=== PATIENT | female | born 1985 | race Caucasian/White ===

== ENCOUNTER → 2017-01-09 | Outpatient (CLI) | payer BC ==
--- NOTE | 2017-01-09 16:05 | Diagnostic Imaging Report ---
INDICATION: survey. TECHNIQUE: Multiple real-time grayscale images were obtained over the gravid uterus. COMPARISON: No prior studies are available for comparison. FINDINGS: heart rate is 138 beats per minutes. There is posterior placenta with no placenta previa. The cervix is long and closed measuring 4.5 cm in length. There is adequate amniotic fluid seen. survey evaluation demonstrates unremarkable appearance of the stomach, the spine, bladder, suggestion of two umbilical arteries, no ventriculomegaly, unremarkable appearance of the four-chamber view. No hydronephrosis or cystic renal mass is demonstrated. The cord insertion is not well seen. This is related to position and surrounding structures. Biometrical measurements are as follows: Biparietal 4.81 cm, age 20 weeks 4 days. Head circumference 17.59 cm, age 20 weeks 1 days. Abdominal circumference 15.22 cm, age 20 weeks 4 days. Femur length 3.12 cm, age 19 weeks 5 days. Sonographic estimate age: 20 weeks 2 days. This compares to 19 weeks and 1 day gestational age based on MANUEL of 06/04/2017, signed by Dr. Bey. Sonographic estimated date of delivery: 05/27/2017. Estimated Weight: 333 gm (+/- 49 gm). LMP percentile: 93%. heart rate: 138 beats per minute. Cervical length: 4.5 cm. number: 1 of 1. IMPRESSION: Short-term followup is recommended to reevaluate the cord insertion. Dictated by: Dictated on workstation # [id number]
== END ==
LOC: RAD 14:33
PROVIDERS: ATTEND Obstetrics & Gynecology
DX: Z36 Encounter for antenatal screening of mother (principal); Z3A.27 27 weeks gestation of pregnancy
CPT/HCPCS: 76805; 76817

== ENCOUNTER → 2017-02-06 | Outpatient (CLI) | payer BC ==
--- NOTE | 2017-02-06 16:26 | Diagnostic Imaging Report ---
INDICATION: Followup cord insertion. TECHNIQUE: Multiple real-time grayscale images were obtained over the gravid uterus. COMPARISON: 01/09/2017 FINDINGS: heart rate is 143 beats per minute. The placenta is posterior. No placenta previa. There is adequate amniotic fluid. Unfortunately, the cord insertion is not well seen at this time as well due to position. IMPRESSION: The cord insertion is still not well seen. Dictated by: Dictated on workstation # [id number]
== END ==
LOC: RAD 12:25
PROVIDERS: ATTEND Obstetrics & Gynecology
DX: Z36 Encounter for antenatal screening of mother (principal); Z3A.00 Weeks of gestation of pregnancy not specified
CPT/HCPCS: 76816

== ENCOUNTER → 2017-02-19 | Outpatient (CLI) | payer BC ==
--- NOTE | 2017-02-19 11:50 | Diagnostic Imaging Report ---
INDICATION: Followup incomplete visualization of the cord insertion. TECHNIQUE: Multiple real-time grayscale images were obtained over the gravid uterus. COMPARISON: 02/06/2017. FINDINGS: Limited transabdominal sonographic evaluation of the gravid uterus was performed. Single live intrauterine is again demonstrated. Gestational age by the first ultrasound is 25 weeks 0 days. Placenta is located within the posterior fundus with no placenta previa. Normal amniotic fluid index. presentation is breech. heart rate measures 143 beats per minute. Good visualization of the umbilical cord insertion which appears within normal limits. IMPRESSION: Umbilical cord insertion appears within normal limits. Dictated by: Dictated on workstation # [id number]
== END ==
LOC: RAD 09:39
PROVIDERS: ATTEND Obstetrics & Gynecology
DX: Z36 Encounter for antenatal screening of mother (principal); Z3A.25 25 weeks gestation of pregnancy
CPT/HCPCS: 76816

== ENCOUNTER 2017-06-05 20:05 | Inpatient (IN) | payer BC ==
[~2017-06-05] VITALS: Ht 172.7 cm; Wt 90.3 kg
[2017-06-05 20:25] VITALS: BP 127/78
[2017-06-05] MEDS ORDERED: LACTATED RINGERS 1,000 ML IV ONE (20:34)
[2017-06-05] MEDS ORDERED: D5 LR IV SOLUTION 1,000 ML IV ONE (20:35)
[2017-06-05] MEDS: D5 LR IV SOLUTION 1,000 ML IV SCH (20:50)
[2017-06-05] MEDS ORDERED: MISOPROSTOL 100 MCG (CYTOTEC) TAB PO ONE (21:15)
[2017-06-05] MEDS ORDERED: LACTATED RINGERS 1,000 ML IV SCH (21:18)
[2017-06-05 21:30] LABS: BASOPHILS % (AUTO) 0 % (0-10); EOSINOPHILS # (AUTO) 0.1 10^3/uL (0.0-0.3); EOSINOPHILS % (AUTO) 1 % (0-10); LYMPHOCYTES # (AUTO) 2.4 X 10^3 (1.0-4.0); LYMPHOCYTES % (AUTO) 19 % (12-44); MEAN CORPUSCULAR HEMOGLOBIN 29 PG (25-34); MEAN CORPUSCULAR HGB CONC 33 G/DL (32-36); MEAN CORPUSCULAR VOLUME 88 FL (80-99); MEAN PLATELET VOLUME 10.9 FL (7.4-10.4); MONOCYTES % (AUTO) 8 % (0-12); NEUTROPHILS # (AUTO) 9.5 X 10^3 (1.8-7.8); NEUTROPHILS % (AUTO) 73 % (42-75); PLATELET COUNT 210 10^3/uL (130-400); RED BLOOD COUNT 3.96 10^6/uL (4.35-5.85); RED CELL DISTRIBUTION WIDTH 13.1 % (10.0-14.5)
[2017-06-05] MEDS ORDERED: MINERAL OIL CONCENTRATE 99.9% 15 ML UDC TOP PRN (21:30)
[2017-06-05] MEDS ORDERED: ZOLPIDEM 5 MG (AMBIEN) TAB PO ONE (21:30)
[2017-06-05 22:20] LABS: BILIRUBIN,URINE NEGATIVE (NEGATIVE); KETONES,URINE 2+ (NEGATIVE); LEUKOCYTE ESTERASE ,URINE NEGATIVE (NEGATIVE); NITRITE,URINE NEGATIVE (NEGATIVE); PH,URINE 6.5 (5-9); PROTEIN,URINE NEGATIVE (NEGATIVE); UROBILINOGEN,URINE NORMAL (NORMAL)
[2017-06-06] VITALS (66 sets, daily range): BP systolic 90–179; BP diastolic 53–99
[2017-06-06] MEDS: MISOPROSTOL 100 MCG (CYTOTEC) TAB PO SCH ×2 (01:37→06:31)
[2017-06-06] MEDS ORDERED: LEVO50TA PO (01:39)
[2017-06-06] MEDS: D5 LR IV SOLUTION 1,000 ML IV SCH ×3 (04:49→17:37)
[2017-06-06] MEDS: CATHETER FLUSH 10 ML SYR IV SCH ×3 (04:51→14:00)
[2017-06-06] MEDS ORDERED: INFLUENZA TRIvalent 2017-2018 0.5 ML/45 MCG SYR IM ONE (08:00)
[2017-06-06] MEDS ORDERED: OXYTOCIN/NORMAL SALINE 500 ML IV SCH ×2 (12:03→23:24)
[2017-06-06] MEDS ORDERED: SUFENTA 0.6MCG/ML BUPIVA 0.125 100 ML ONE (13:13)
[2017-06-06] MEDS ORDERED: fentaNYL INJECTION 100 MCG/2 ML AMP ONE (13:51)
[2017-06-06] MEDS: EPIDURAL (SUFENTA 0.6MCG/ML BUPIVA 0.125%) 100 ML BAG EPI PRN ×2 (14:00→22:03)
[2017-06-06] MEDS ORDERED: LACTATED RINGERS 1,000 ML IV ONE (14:58)
[2017-06-06] MEDS ORDERED: METOCLOPRAMIDE INJ 10 MG/2 ML (REGLAN) IV PRN (15:00)
[2017-06-06] MEDS ORDERED: NALOXONE 0.4 MG/ML 1 ML (NARCAN) VIAL IV PRN ×2 (15:00)
[2017-06-06] MEDS ORDERED: diphenhydrAMINE 50 MG/ML INJ (BENADRYL) IV PRN (15:00)
[2017-06-06] MEDS ORDERED: ONDANSETRON 4 MG/2 ML (SDV) Z0FRAN IV PRN (15:00)
[2017-06-06] MEDS ORDERED: LIDOCAINE/EPI 2% 1:200,00 (XYLOCAINE) 10 ML VIAL ONE (20:47)
[2017-06-06] MEDS ORDERED: MEASLES,MUMPS,RUBELLA 1 EA INJ SQ ONE (23:30)
[2017-06-06] MEDS ORDERED: TETANUS,DIPTH,PERTUSS P/F (BOOSTRIX) 0.5 ML VIAL IM ONE (23:30)
[2017-06-06] MEDS ORDERED: HYDROcodone/APAP 5 MG/325 MG (LORTAB) TAB PO PRN (23:30)
--- NOTE | 2017-06-06 23:32 | OB Labor & Delivery Record ---
Vag Delivery Note Vag Delivery Note Date of Delivery: 06/06/17 Preoperative Diagnosis: Marci Saldana is a 31 /Para 1 /0 , Gestational Age 40 2/7 for induction due to post dates Postoperative Diagnosis: Same Surgeon: TRISTEN DOMINGO Anesthesia: epidural Delivery Type: vaginal Findings: Viable male infant, apgar9/9, weight [ pending Lacerations: 2nd degree Intact placenta with 3 vessel cord. No nuchal cord, body cord or shoulder dystocia Estimated Blood Loss: 150 ml Complications: None Condition: Stable Description of Procedure: The patient is a 31 /Para 1 /0 ,Gestational Age 40 2/7 for induction due to post dates. She was admitted and informed consent was obtained. Her labor course was remarkable for oral misoprostol x 3 doses then AROM and no augmentation until 9.5 + cm. She progressed to complete dilatation and began to push. She was then set up for delivery. The infant's head was delivered atraumatically in the CHERYL position. The shoulders and remainder of the 's body were then delivered without difficulty. Upon delivery, the head was held below the level of the perineum and the mouth and nares were bulb suctioned. The cord was doubly clamped and cut and the was handed off to the pediatric staff. An intact placenta with 3-vessel cord delivered via Matt and there was found to be minimal bleeding.~ Vigorous fundal massage was performed and the fundus was found to be firm. IV oxytocin was given. Examination of the vagina and perineum revealed a 2nd degree laceration repaired in the usual fashion with 3-0 vicryl suture. Following the repair, sponge, instrument and needle counts were correct. Mom and baby were both in stable condition in the labor suite. Vitals - Labs Vital Signs - I&O Vital Signs Date Time Temp Pulse Resp B/P (MAP) Pulse Ox O2 Delivery O2 Flow Rate FiO2 06/06/17 21:30 85 18 123/78 98 Room Air 06/06/17 21:15 80 18 124/73 98 Room Air 06/06/17 21:00 81 18 123/79 99 Room Air 06/06/17 20:45 81 18 122/77 98 Room Air 06/06/17 20:30 77 18 123/76 97 Room Air 06/06/17 20:25 86 18 122/72 97 Room Air 06/06/17 20:20 92 18 121/72 97 Room Air 06/06/17 20:15 77 18 125/73 97 Room Air 06/06/17 20:10 81 18 125/75 96 Room Air 06/06/17 20:05 85 18 119/75 98 Room Air 06/06/17 20:00 87 18 120/77 99 Room Air 06/06/17 19:55 78 18 121/71 99 Room Air 06/06/17 19:50 79 18 116/71 98 Room Air 06/06/17 19:45 97.7 84 18 125/83 97 Room Air 06/06/17 19:40 85 18 125/77 Room Air 06/06/17 19:30 86 18 123/76 Room Air 06/06/17 19:15 82 18 119/66 Room Air 06/06/17 19:00 78 18 114/67 Room Air 06/06/17 18:45 96 121/70 Room Air 06/06/17 18:45 Room Air 06/06/17 18:30 74 117/69 Room Air 06/06/17 18:15 83 119/75 Room Air 06/06/17 18:00 88 118/71 Room Air 06/06/17 18:00 98.0 06/06/17 17:45 73 18 113/68 Room Air 06/06/17 17:30 120/70 Room Air 06/06/17 17:15 86 116/74 Room Air 06/06/17 17:00 88 123/74 Room Air 06/06/17 16:45 84 120/73 Room Air 06/06/17 16:30 71 18 115/71 Room Air 06/06/17 16:15 73 114/70 Room Air 06/06/17 16:00 79 115/70 Room Air 06/06/17 15:45 114/78 Room Air 06/06/17 15:30 80 114/78 Non Rebreather 15.00 06/06/17 15:15 79 111/74 Room Air 06/06/17 15:00 87 90/53 99 Room Air 06/06/17 14:45 74 110/70 99 Room Air 06/06/17 14:30 96.9 Room Air 06/06/17 14:27 82 18 114/68 99 06/06/17 14:25 73 18 114/66 100 06/06/17 14:23 85 18 112/68 100 10/18/17 14:19 76 18 111/67 100 06/06/17 14:16 81 18 120/67 100 06/06/17 14:15 78 18 119/70 Room Air 06/06/17 14:13 78 18 119/70 100 06/06/17 14:10 81 18 126/74 98 06/06/17 14:07 81 18 126/74 98 06/06/17 14:04 81 18 125/75 100 06/06/17 14:01 82 18 123/75 06/06/17 14:00 88 18 121/74 Room Air 06/06/17 13:55 90 125/73 99 Room Air 06/06/17 13:52 88 119/74 99 Room Air 06/06/17 13:50 85 127/79 99 Room Air 06/06/17 13:45 90 121/78 100 Room Air 06/06/17 13:30 06/06/17 13:20 79 18 122/79 Room Air 06/06/17 13:15 06/06/17 13:05 81 18 122/79 Room Air 06/06/17 13:00 06/06/17 12:50 80 18 128/81 Room Air 06/06/17 12:45 06/06/17 12:35 97.6 81 18 129/78 Room Air 06/06/17 12:30 06/06/17 12:20 81 18 127/84 Room Air 06/06/17 12:15 06/06/17 12:00 06/06/17 11:00 06/06/17 10:00 06/06/17 09:00 06/06/17 08:15 97.6 90 18 135/81 06/06/17 08:00 06/06/17 07:00 97.2 77 125/79 06/06/17 02:00 97.2 82 18 119/79 I & O 06/07/17 07:00 Intake Total 3000 ml Balance 3000 ml Labs Microbiology 06/05/17 Urine Culture - Preliminary, Resulted TRISTEN DOMINGO DO Jun 06, 2017 23:32
[2017-06-07] VITALS (8 sets, daily range): BP systolic 108–119; BP diastolic 66–80
[2017-06-07] MEDS: IBUPROFEN 600 MG (MOTRIN) TAB PO SCH ×4 (00:36→18:46)
[2017-06-07] MEDS: WITCH HAZEL(TUCKS) 40 EA JAR TOP PRN (01:10)
[2017-06-07] MEDS: BENZOCAINE/MENTHOL (DERMOPLAST) 56 ML CAN TP PRN (01:10)
[2017-06-07] MEDS: DIBUCAINE (NUPERCAINAL) 1% OINT 30 GM TOP PRN (01:10)
[2017-06-07] MEDS: CATHETER FLUSH 10 ML SYR IV SCH ×2 (02:11→06:28)
[2017-06-07] MEDS ORDERED: CATHETER FLUSH 10 ML SYR IV SCH (06:00)
[2017-06-07 06:09] LABS: BASOPHILS % (AUTO) 0 % (0-10); EOSINOPHILS # (AUTO) 0.1 10^3/uL (0.0-0.3); EOSINOPHILS % (AUTO) 0 % (0-10); LYMPHOCYTES # (AUTO) 1.8 X 10^3 (1.0-4.0); LYMPHOCYTES % (AUTO) 9 % (12-44); MEAN CORPUSCULAR HEMOGLOBIN 29 PG (25-34); MEAN CORPUSCULAR HGB CONC 33 G/DL (32-36); MEAN CORPUSCULAR VOLUME 88 FL (80-99); MONOCYTES # (AUTO) 1.5 X 10^3 (0.0-1.0); MONOCYTES % (AUTO) 7 % (0-12); NEUTROPHILS # (AUTO) 16.6 X 10^3 (1.8-7.8); NEUTROPHILS % (AUTO) 83 % (42-75); PLATELET COUNT 190 10^3/uL (130-400); RED BLOOD COUNT 3.77 10^6/uL (4.35-5.85); RED CELL DISTRIBUTION WIDTH 13.3 % (10.0-14.5); WHITE BLOOD COUNT 19.9 10^3/uL (4.3-11.0)
[2017-06-07] MEDS: D5 LR IV SOLUTION 1,000 ML IV SCH (06:28)
[2017-06-07] MEDS ORDERED: PRENATAL VITAMIN 1 EA TAB PO SCH (07:00)
[2017-06-07] MEDS: FERROUS SULF 325 MG (IRON) TAB PO SCH (09:21)
[2017-06-07] MEDS: DOCUSATE SODIUM 100 MG (COLACE) CAP PO SCH ×2 (09:21→20:35)
--- NOTE | 2017-06-07 17:26 | Postpartum Progress Note ---
Note Note See at 0845 Day # 1 Subjective: Patient is without complaints. Ambulating, voiding. Tolerating a regular diet without nausea or vomiting. Normal lochia. Pain is well controlled with oral pain medications. breast feeding Objective: Vital Sign - Last 12Hours 06/07/17 06/07/17 06/07/17 06/07/17 09:30 13:07 16:00 16:40 Temp 97.6 98.4 99.5 99.2 Pulse 87 81 83 Resp 18 18 20 B/P (MAP) 113/72 110/75 117/72 Pulse Ox 100 98 100 O2 Delivery Room Air Room Air Room Air Laboratory Tests Test 06/07/17 06:00 Range/Units White Blood Count 19.9 H 4.3-11.0 10^3/uL Red Blood Count 3.77 L 4.35-5.85 10^6/uL Hemoglobin 11.1 L 11.5-16.0 G/DL Hematocrit 33 L 35-52 % Mean Corpuscular Volume 88 80-99 FL Mean Corpuscular Hemoglobin 29 25-34 PG Mean Corpuscular Hemoglobin Concent 33 32-36 G/DL Red Cell Distribution Width 13.3 10.0-14.5 % Platelet Count 190 130-400 10^3/uL Mean Platelet Volume 11.0 H 7.4-10.4 FL Neutrophils (%) (Auto) 83 H 42-75 % Lymphocytes (%) (Auto) 9 L 12-44 % Monocytes (%) (Auto) 7 0-12 % Eosinophils (%) (Auto) 0 0-10 % Basophils (%) (Auto) 0 0-10 % Neutrophils # (Auto) 16.6 H 1.8-7.8 X 10^3 Lymphocytes # (Auto) 1.8 1.0-4.0 X 10^3 Monocytes # (Auto) 1.5 H 0.0-1.0 X 10^3 Eosinophils # (Auto) 0.1 0.0-0.3 10^3/uL Basophils # (Auto) 0.0 0.0-0.1 10^3/uL Physical Exam: General - Alert and oriented, no apparent distress Abdomen - Soft, appropriately tender to palpation, non-distended, fundus firm at umbilicus Extremities - no edema, negative Ritchie's bilaterally Assessment: 1. post- day # 1, status post vaginal delivery. Recovering well, hemodynamically stable Plan: Routine care. Encourage breast feeding. Encourage ambulation. Ferrous sulfate supplementation. Plan for discharge tomorrow Vitals - Labs Vital Signs - I&O Vital Signs Date Time Temp Pulse Resp B/P (MAP) Pulse Ox O2 Delivery O2 Flow Rate FiO2 06/07/17 16:40 99.2 06/07/17 16:00 99.5 83 20 117/72 100 Room Air 06/07/17 13:07 98.4 81 18 110/75 98 Room Air 06/07/17 09:30 97.6 87 18 113/72 100 Room Air 06/07/17 04:00 97.5 80 18 108/66 98 Room Air 06/07/17 00:48 98.8 84 18 115/66 Room Air 06/07/17 00:33 88 18 112/70 Room Air 06/07/17 00:03 83 18 118/71 Room Air 06/06/17 23:48 99.0 80 18 113/65 Room Air 06/06/17 23:34 93 18 128/66 Room Air 06/06/17 23:00 126 18 179/82 Room Air 06/06/17 22:55 18 Room Air 06/06/17 22:50 18 Room Air 06/06/17 22:45 87 18 121/69 Room Air 06/06/17 22:30 93 18 126/63 Room Air 06/06/17 22:15 87 18 121/75 Room Air 06/06/17 22:00 105 18 143/99 99 Room Air 06/06/17 21:45 80 18 98 Room Air 06/06/17 21:30 85 18 123/78 98 Room Air 06/06/17 21:15 80 18 124/73 98 Room Air 06/06/17 21:00 81 18 123/79 99 Room Air 06/06/17 20:45 81 18 122/77 98 Room Air 06/06/17 20:30 77 18 123/76 97 Room Air 06/06/17 20:25 86 18 122/72 97 Room Air 06/06/17 20:20 92 18 121/72 97 Room Air 06/06/17 20:15 77 18 125/73 97 Room Air 06/06/17 20:10 81 18 125/75 96 Room Air 06/06/17 20:05 85 18 119/75 98 Room Air 06/06/17 20:00 87 18 120/77 99 Room Air 06/06/17 19:55 78 18 121/71 99 Room Air 06/06/17 19:50 79 18 116/71 98 Room Air 06/06/17 19:45 97.7 84 18 125/83 97 Room Air 06/06/17 19:40 85 18 125/77 Room Air 06/06/17 19:30 86 18 123/76 Room Air 06/06/17 19:15 82 18 119/66 Room Air 06/06/17 19:00 78 18 114/67 Room Air 06/06/17 18:45 96 121/70 Room Air 06/06/17 18:45 Room Air 06/06/17 18:30 74 117/69 Room Air 06/06/17 18:15 83 119/75 Room Air 06/06/17 18:00 88 118/71 Room Air 06/06/17 18:00 98.0 06/06/17 17:45 73 18 113/68 Room Air 06/06/17 17:30 120/70 Room Air Labs Laboratory Tests 06/07/17 06:00: White Blood Count 19.9H, Red Blood Count 3.77L, Hemoglobin 11.1L, Hematocrit 33L , Mean Corpuscular Volume 88, Mean Corpuscular Hemoglobin 29, Mean Corpuscular Hemoglobin Concent 33, Red Cell Distribution Width 13.3, Platelet Count 190, Mean Platelet Volume 11.0H, Neutrophils (%) (Auto) 83H, Lymphocytes (%) (Auto) 9L, Monocytes (%) (Auto) 7, Eosinophils (%) (Auto) 0, Basophils (%) (Auto) 0, Neutrophils # (Auto) 16.6H, Lymphocytes # (Auto) 1.8, Monocytes # (Auto) 1.5H, Eosinophils # (Auto) 0.1, Basophils # (Auto) 0.0 Microbiology 06/05/17 Urine Culture - Final, Complete TRISTEN DOMINGO DO Jun 07, 2017 5:26 pm
[2017-06-07] MEDS ORDERED: HYDR-3812 PO (17:27)
[2017-06-07] MEDS ORDERED: IBUP-1773 PO (17:27)
--- NOTE | 2017-06-07 17:29 | Discharge Inst-Women's Service ---
Discharge Inst-Women's Serv Depart Medication/Instructions New, Converted or Re-Newed RX: RX on Chart Final Diagnosis post dates vaginal delivery hypothyroidism Consults/Follow Up Additional Follow Up: Yes (6 weeks) Activity Activity: Activity as Tolerated Driving Instructions: You May Drive NO SMOKING: NO SMOKING Nothing Inside Vagina: No Douching, No [place], No Tampons Diet Discharge Diet: No Restrictions Symptoms to Report to : Swelling Increased, Bleeding Excessive, Pain Increased, Fever Over 101 Degrees F, Vaginal Bleeding Increase, Cramps in Feet or Legs, Vaginal Discharge Foul For Any Problems or Questions: Contact Your Physician Skin/Wound Care Stitches/Radha/Dermabond: Dermabond Bathing Instructions: TRISTEN Chavez DO Jun 07, 2017 5:29 pm
[2017-06-08] MEDS: IBUPROFEN 600 MG (MOTRIN) TAB PO SCH ×3 (00:16→12:16)
[2017-06-08 00:19] VITALS: BP 121/80
[2017-06-08 06:10] VITALS: BP 123/81
--- NOTE | 2017-06-08 09:09 | Anesthesia-Regional Post-Op ---
Regional Patient Condition Mental Status: Alert, Oriented x3 Circulation: Same as Pre-Op Headache: Absent Sensation: Full Recovery Motor Block: Absent Post Op Complications Complications None Follow Up Care/Instructions Patient Instructions None needed. Anesthesia/Patient Condition Patient is doing well, no complaints, stable vital signs, no apparent adverse anesthesia problems. No complications reported per nursing. GIBRAN RG CRNA Jun 08, 2017 09:09
[2017-06-08 09:30] VITALS: BP 124/79
[2017-06-08] MEDS: DOCUSATE SODIUM 100 MG (COLACE) CAP PO SCH (09:46)
[2017-06-08] MEDS: FERROUS SULF 325 MG (IRON) TAB PO SCH (09:46)
[2017-06-08] MEDS: BENZOCAINE/MENTHOL (DERMOPLAST) 56 ML CAN TP PRN (10:02)
[2017-06-08] MEDS: WITCH HAZEL(TUCKS) 40 EA JAR TOP PRN (10:03)
[2017-06-08] MEDS: DIBUCAINE (NUPERCAINAL) 1% OINT 30 GM TOP PRN (10:03)
--- NOTE | 2017-06-08 10:18 | Progress Note-Standard ---
Standard Progress Note Progress Notes/Assess & Plan Date Seen by Provider: Jun 08, 2017 Time Seen by Provider: 10:00 Progress/Assessment & Plan Day # 2 Subjective: Patient is without complaints. Ambulating, voiding. Tolerating a regular diet without nausea or vomiting. Normal lochia. Pain is well controlled with oral pain medications. breast feeding Objective: Vital Sign - Last 24 Hours 06/07/17 06/07/17 06/07/17 06/07/17 13:07 16:00 16:40 21:00 Temp 98.4 99.5 99.2 99.2 Pulse 81 83 80 Resp 18 18 B/P (MAP) 110/75 117/72 119/80 Pulse Ox 98 100 99 O2 Delivery Room Air Room Air Room Air 06/08/17 06/08/17 06/08/17 00:19 06:10 09:30 Temp 99.1 97.9 98.9 Pulse 84 79 86 Resp 18 18 18 B/P (MAP) 121/80 123/81 124/79 Pulse Ox 98 99 99 O2 Delivery Room Air Room Air Room Air Physical Exam: General - Alert and oriented, no apparent distress Abdomen - Soft, appropriately tender to palpation, non-distended, fundus firm at umbilicus Extremities - no edema, negative Ritchie's bilaterally Assessment: Post- day # 2, status post vaginal delivery. Recovering well, hemodynamically stable Plan: Routine care. Encourage breast feeding. Encourage ambulation. Ferrous sulfate supplementation. Plan for discharge today RASHEED HAMMONDS DO Jun 08, 2017 10:18 am
[2017-06-08 12:30] VITALS: BP 116/78
[2017-06-08 14:20] VITALS: BP 116/78
== END 2017-06-08 14:20 | disposition home or self-care (01) | DRG 775 ==
LOC: LDRP 20:05
PROVIDERS: ADMIT Obstetrics & Gynecology; ATTEND Obstetrics & Gynecology
PROC: 3E0P7GC Introduction of Other Therapeutic Substance into Female Reproductive, Via Natural or Artificial Opening (ICD-10-PCS; 2017-06-05)
PROC: 0KQM0ZZ Repair Perineum Muscle, Open Approach (ICD-10-PCS; principal; 2017-06-06)
PROC: 10E0XZZ Delivery of Products of Conception, External Approach (ICD-10-PCS; 2017-06-06)
DX: O48.0 Post-term pregnancy (principal); O70.1 Second degree perineal laceration during delivery; Z3A.40 40 weeks gestation of pregnancy; Z37.0 Single live birth
CPT/HCPCS: 36415; 81000; 85025; 86850; 86900; 86901; 87088

== ENCOUNTER 2019-02-25 23:58 | Emergency (ER) | payer BC, OTHER ==
[~2019-02-25] VITALS: Ht 175.3 cm; Wt 63.5 kg
[~2019-02-25 23:58] MED LIST: ACHD5005 PO; IBUP-1773 PO; LEVO50TA PO
--- OUTSIDE RECORDS SUMMARY | 2019-02-26 00:04 | XMS REPORT ---
Author Author RASHEED ROJO Organization [facility] Address [address] [place] [address] Care Team Providers Care Extrusion Press Supervisor Name Role Phone RASHEED ROJO Unavailable PROBLEMS Type Condition ICD9-CM Code [id number] Code Onset Dates Condition Status SNOMED Code Problem Acquired hypothyroidism E03.9 Active [id number] ALLERGIES No Known Allergies ENCOUNTERS Encounter Location Date Diagnosis [facility] [address] [facility] [id number] [address] Jun, Acquired hypothyroidism E03.9 and Acute URI J06.9 IMMUNIZATIONS No Known Immunizations SOCIAL HISTORY Never Assessed REASON FOR VISIT Cough-SOFIYA [place], pt complaining of coughing up yellow phlegm and and chest is burning when cough, started last week PLAN OF CARE Activity Details Follow Up 6 Weeks Reason:lab for thyroid VITAL SIGNS Height 5 ft 8 in in 2018-07-10 Weight 140.9 lbs 2018-07-10 Temperature 98.0 degrees Fahrenheit 2018-07-10 Heart Rate 86 bpm 2018-07-10 Respiratory Rate 18 2018-07-10 Oximetry on room air:98 % 2018-07-10 BMI 21.42 kg/m2 2018-07-10 Blood pressure systolic 112 mmHg 2018-07-10 Blood pressure diastolic 78 mmHg 2018-07-10 MEDICATIONS Medication Instructions Dosage Frequency Start Date End Date Duration Status Levothyroxine Sodium 100 MCG Orally Once a day 1 tablet on an empty stomach in the morning 24h 30 day(s) Active RESULTS No Results PROCEDURES No Known procedures INSTRUCTIONS MEDICATIONS ADMINISTERED No Known Medications MEDICAL (GENERAL) HISTORY Type Description Date Medical History thyroid Surgical History No Surgical history information
--- OUTSIDE RECORDS SUMMARY | 2019-02-26 00:04 | XMS REPORT | Continuity of Care Document ---
Author Organization Unknown Address Unknown Allergies There is no data. Medications There is no data. Problems There is no data. Procedures There is no data. Results There is no data. Encounters ACCT No. Visit Date/Time Discharge Status Pt. Type Provider Facility Loc./Unit Complaint [id number] 12/26/2018 12:20:00 12/26/2018 23:59:59 CLS Outpatient [facility]
[2019-02-26 00:24] LABS: BILIRUBIN,URINE NEGATIVE (NEGATIVE); CLARITY,URINE CLEAR; COLOR,URINE YELLOW; GLUCOSE, URINE (UA) NEGATIVE (NEGATIVE); KETONES,URINE 1+ (NEGATIVE); LEUKOCYTE ESTERASE ,URINE 1+ (NEGATIVE); NITRITE,URINE NEGATIVE (NEGATIVE); PH,URINE 6 (5-9); PROTEIN,URINE 2+ (NEGATIVE); UROBILINOGEN,URINE 1 MG/DL (NORMAL)
[2019-02-26 00:38] LABS: BACTERIA,URINE MODERATE /HPF; WBC,URINE 0-2 /HPF
--- NOTE | 2019-02-26 01:39 | ED Abdominal Pain ---
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 STATES SHE GOT VERY NAUSEATED, LIGHTHEADED, AND WAS LYING ON BATHROOM FLOOR WRITHING IN PAIN. DENIES FEVER OR URINARY ISSUES. STATES BARELY HAS ANY PAIN NOW AND RATES 1/10. Sepsis Screen: No Definite Risk Source of Information: Patient, Family Exam Limitations: No Limitations History of Present Illness Date Seen by Provider: Feb 26, 2019 Time Seen by Provider: 00:02 Initial Comments This 33-year-old young lady presents to the emergency room with complaints of severe left pelvic pain almost immediately after having intercourse. She felt lightheaded and nauseated during the most intense pain. Her pain has rapidly dissipated and is now minimal. She denies any other symptoms such as prior pain with intercourse, urinary symptoms, vaginal discharge, etc. Her last ventral period was February 10. The incident occurred around 23:30. Allergies and Home Medications Allergies Coded Allergies: No Known Drug Allergies (Unverified , 06/05/17) Home Medications Hydrocodone Bit/Acetaminophen 1 Each Tablet, 1-2 TAB PO Q4H PRN for PAIN- MODERATE Prescribed by: TRISTEN DOMINGO on 06/07/17 172 Ibuprofen 600 Mg Tablet, 600 MG PO Q6H Prescribed by: TRISTEN DOMINGO on 06/07/17 172 Levothyroxine Sodium 50 Mcg Tablet, 50 MCG PO DAILY, (Reported) Patient Home Medication List Home Medication List Reviewed: Yes Review of Systems Review of Systems Constitutional: no symptoms reported EENTM: No Symptoms Reported Respiratory: No Symptoms Reported Cardiovascular: See HPI Gastrointestinal: See HPI Genitourinary: See HPI Musculoskeletal: no symptoms reported Skin: no symptoms reported Psychiatric/Neurological: No Symptoms Reported Endocrine: No Symptoms Reported Hematologic/Lymphatic: No Symptoms Reported Past Wzsqtbd-Ljxvcx-Pqvypj Hx Past Med/Social Hx: Reviewed and Corrections made Patient Social History Alcohol Use: Denies Use Recreational Drug Use: No Smoking Status: Current Everyday Smoker Type Used: Cigarettes Former Smoker, Quit: Oct 07, 2016 Recent Foreign Travel: No Contact w/Someone Who Travel: No Recent Infectious Disease Expo: No Recent Hopitalizations: No Seasonal Allergies Seasonal Allergies: No Past Medical History Surgeries: Yes (Cyst removal) Respiratory: No Cardiac: No Neurological: No Female Reproductive Disorders: Denies Sexually Transmitted Disease: No HIV/AIDS: No Genitourinary: No Gastrointestinal: No Musculoskeletal: No Endocrine: Yes (Thyroid dysfunction) HEENT: No Cancer: No Psychosocial: No Integumentary: No Blood Disorders: No Adverse Reaction/Blood Tranf: No Physical Exam Vital Signs Vital Signs - First Documented 02/26/19 7 00:20 01:45 Temp 96.9 Pulse 73 Resp 18 B/P (MAP) 125/92 (103) Pulse Ox 100 Capillary Refill : Less Than 3 Seconds Height/Weight/BMI Height: 5'9.00" Weight: 140lbs. 0.6oz. 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, no motor/sensory deficits, alert, normal mood/affect, oriented x 3 Skin: normal color, warm/dry Progress/Results/Core Measures Results/Orders Lab Results Laboratory Tests Test 02/26/19 00:19 Range/Units Urine Color YELLOW Urine Clarity CLEAR Urine pH 6 5-9 Urine Specific [place] 1.020 1.016-1.022 Urine Protein 2+ H NEGATIVE Urine Glucose (UA) NEGATIVE NEGATIVE Urine Ketones 1+ H NEGATIVE Urine Nitrite NEGATIVE NEGATIVE Urine Bilirubin NEGATIVE NEGATIVE Urine Urobilinogen 1 NORMAL MG/DL Urine Leukocyte Esterase 1+ H NEGATIVE Urine RBC (Auto) NEGATIVE NEGATIVE Urine RBC NONE /HPF Urine WBC 0-2 /HPF Urine Squamous Epithelial Cells 2-5 /HPF Urine Crystals NONE /LPF Urine Bacteria MODERATE H /HPF Urine Casts NONE /LPF Urine Mucus MODERATE H /LPF Urine Culture Indicated NO My Orders Orders - MARTIN GRIMM MD Ua Culture If Indicated (02/26/19 00:02) Ed Iv/Invasive Line Start (02/26/19 00:02) Urine Bedside (02/26/19 00:31) Vital Signs/I&O 02/26/19 02/26/19 00:20 01:45 Temp 96.9 96.9 Pulse 73 70 Resp 18 16 B/P (MAP) 125/92 (103) 122/90 (101) Pulse Ox 100 Blood Pressure Mean: 103 Progress Progress Note : Time: 01:38 Progress Note Patient's pain resolved and she fell sleep without any treatment. Urine demonstrated no concerning abnormalities. test was negative. Patient elects to return home without any further workup. Departure Impression Primary Impression: Pelvic pain Disposition: HOME, SELF-CARE Condition: Improved Departure-Patient Inst. Decision time for Depature: 01:39 Referrals: [facility] (PCP/Family) Primary Care Physician Patient Instructions: Acute Pelvic Pain Add. Discharge Instructions: Return to the emergency room if you have recurrent symptoms of severe pain or develop other symptoms such as vomiting, fever, etc. Otherwise contacted your primary care provider for follow-up appointment. All discharge instructions reviewed with patient and/or family. Voiced understanding. Copy Copies To 1: YAMILET ALBERTO JOSHUA T MD Feb 26, 2019 01:39
[2019-02-26 01:45] VITALS: BP 122/90
== END 2019-02-26 01:44 | disposition home or self-care (01) ==
LOC: EDUNIT# 23:58 → ER 02-26
DX: R10.2 Pelvic and perineal pain (principal); E07.9 Disorder of thyroid, unspecified; F17.210 Nicotine dependence, cigarettes, uncomplicated
CPT/HCPCS: 81000; 84703; 99282

== ENCOUNTER → 2020-06-25 | Outpatient (CLI) | payer OTHER ==
--- NOTE | 2020-06-25 11:19 | Diagnostic Imaging Report ---
INDICATION: survey. TECHNIQUE: Multiple real-time grayscale images were obtained over the gravid uterus. COMPARISON: None FINDINGS: There is a single live fetus in a transverse presentation, head to maternal left. heart rate was recorded at 144 bpm. Placenta is anterior. Amniotic fluid index is 14.3 cm. Cervical length is 4.1 cm. kidneys, bladder and stomach are unremarkable. brain is unremarkable. There is a four-chamber heart. There is a three-vessel cord with normal insertion. spine is unremarkable. Biometrical measurements are as follows: Biparietal 4.66 cm, age 20 weeks 1 days. Head circumference 16.95 cm, age 19 weeks 5 days. Abdominal circumference 15.09 cm, age 20 weeks 3 days. Femur length 3.22 cm, age 20 weeks 1 days. Sonographic estimate age: 20 weeks 1 days. Sonographic estimated date of delivery: 11/11/2020. Estimated Weight: 334 gm (+/- 49 gm). LMP percentile: 84%. heart rate: 144 beats per minute. number: 1 of 1. IMPRESSION: Single live IUP 20 weeks 1 day gestational age. Estimated date of confinement sonographically is 11/11/2020. Dictated by: Dictated on workstation # [id number]
== END ==
LOC: RAD 09:58
PROVIDERS: ATTEND Nurse Practitioner Women's Health
DX: Z34.02 Encounter for supervision of normal first pregnancy, second trimester (principal); Z3A.20 20 weeks gestation of pregnancy
CPT/HCPCS: 76805

== ENCOUNTER 2020-08-25 11:42 | Outpatient (CLI) | payer OTHER ==
[~2020-08-25] VITALS: Ht 172.7 cm; Wt 89.3 kg
[2020-08-25 11:45] VITALS: BP 141/66
--- NOTE | 2020-08-26 08:12 | Physician Query-Final Dx ---
ONUR MICHAELS 08/26/20 0812: Clinic Account Progress/Dx Physician Query: Please give diagnosis Please indluce # weeks gestation Date of Service Aug 25, 2020 at 11:42 MADALYN QUILES MD 08/26/20 0956: Clinic Account Progress/Dx DIAGNOSIS: Diagnosis Decreased movement at 28 weeks gestation ONUR MICHAELS Aug 26, 2020 08:12 MADALYN QUILES MD Aug 26, 2020 09:56
== END 2020-08-25 12:40 | disposition home or self-care (01) ==
LOC: WSo 11:42 → LDRP 11:42 → WSo 12:40
PROVIDERS: ATTEND Obstetrics & Gynecology
DX: O36.8130 Decreased fetal movements, third trimester, not applicable or unspecified (principal); Z3A.28 28 weeks gestation of pregnancy
CPT/HCPCS: 99212

== ENCOUNTER 2020-10-13 10:10 | Outpatient (CLI) | payer OTHER ==
[~2020-10-13] VITALS: Ht 172.7 cm; Wt 95.1 kg
[2020-10-13 10:30] VITALS: BP 132/62
--- NOTE | 2020-10-14 08:34 | Physician Query-Final Dx ---
ONUR MICHAELS 10/14/20 0834: Clinic Account Progress/Dx Physician Query: Please give diagnosis Please include # weeks gestation Date of Service Oct 13, 2020 at 10:10 RASHEED HAMMONDS DO 10/14/202041: Clinic Account Progress/Dx DIAGNOSIS: Diagnosis 35 week IUP Decreased movement ONUR MICHAESL Oct 14, 2020 08:34 RASHEED HAMMONDS DO Oct 14, 2020 20:42
== END 2020-10-13 11:40 | disposition home or self-care (01) ==
LOC: WSo 10:10 → LDRP 10:11 → WSo 11:40
PROVIDERS: ATTEND Obstetrics & Gynecology
DX: O36.8130 Decreased fetal movements, third trimester, not applicable or unspecified (principal); Z3A.35 35 weeks gestation of pregnancy
CPT/HCPCS: 99212

== ENCOUNTER 2020-11-18 06:00 | Inpatient (IN) | payer OTHER ==
[~2020-11-18] VITALS: Ht 172.7 cm; Wt 100.7 kg
[2020-11-18] VITALS (55 sets, daily range): BP systolic 94–137; BP diastolic 55–84
[2020-11-18] MEDS ORDERED: AMPICILLIN FOR IV USE 2,000 MG in WATER (STERILE) FOR INJECTION 14.8 ML IV SCH (06:43)
[2020-11-18] MEDS ORDERED: MINERAL OIL CONCENTRATE 99.9% 15 ML UDC TOP PRN (06:45)
[2020-11-18 07:03] LABS: BASOPHILS % (AUTO) 0 % (0-10); EOSINOPHILS # (AUTO) 0.1 10^3/uL (0.0-0.3); EOSINOPHILS % (AUTO) 1 % (0-10); HEMATOCRIT 29 % (35-52); LYMPHOCYTES # (AUTO) 1.8 10^3/uL (1.0-4.0); LYMPHOCYTES % (AUTO) 19 % (12-44); MEAN CORPUSCULAR HEMOGLOBIN 26 pg (25-34); MEAN CORPUSCULAR HGB CONC 31 g/dL (32-36); MEAN CORPUSCULAR VOLUME 85 fL (80-99); MEAN PLATELET VOLUME 9.7 fL (9.0-12.2); MONOCYTES # (AUTO) 0.8 10^3/uL (0.0-1.0); MONOCYTES % (AUTO) 9 % (0-12); NEUTROPHILS # (AUTO) 6.4 10^3/uL (1.8-7.8); NEUTROPHILS % (AUTO) 68 % (42-75); PLATELET COUNT 171 10^3/uL (130-400); WHITE BLOOD COUNT 9.3 10^3/uL (4.3-11.0)
[2020-11-18] MEDS: D5 LR IV SOLUTION 1,000 ML IV SCH ×2 (07:05→14:51)
[2020-11-18] MEDS ORDERED: OXYTOCIN PRE-MIX DRIP 500 ML IV SCH ×2 (07:30→18:45)
[2020-11-18] MEDS ORDERED: LACTATED RINGERS 1,000 ML IV ONE ×2 (09:37→15:15)
[2020-11-18] MEDS ORDERED: fentaNYL INJ 100 MCG/2 ML AMP ONE (10:27)
[2020-11-18] MEDS: fentaNYL 2 mcg/ml BUPIVA 0.125 100 ML ONE ×3 (10:54→15:15)
[2020-11-18] MEDS: AMPICILLIN FOR IV USE 1,000 MG in WATER (STERILE) FOR INJECTION 7.4 ML IV SCH ×2 (11:03→14:51)
[2020-11-18] MEDS ORDERED: CATHETER FLUSH 10 ML SYR IV SCH ×2 (14:00→22:00)
[2020-11-18] MEDS ORDERED: ONDANSETRON 4 MG/2 ML (SDV) Z0FRAN IV PRN (15:15)
[2020-11-18] MEDS ORDERED: fentaNYL 2 mcg/ml BUPIVA 0.125 100 ML IV SCH (15:15)
--- NOTE | 2020-11-18 17:14 | History & Physical-OB ---
OB - Chief Complaint & HPI Date/Time Date of Admission: Date of Admission: Nov 18, 2020 at 06:03 Date seen by a Provider: Nov 18, 2020 Time Seen by a Provider: 08:00 Chief Complaint/History OB-Reason for Admission/Chief: Induction of Labor Hx : 2 Hx Para: 1 Expected Date of Delivery: Nov 17, 2020 Gestational Age in Weeks: 40 Gestational Age in Days: 2 Indication for induction: post dates Other reason for admission: Planned IOL at 40 + weeks to prevent the complications of post maturity. She has history of LGA (8#15 ounce) baby with IOL for first . Her has been uncomplicated. Admission Nurse Assessment Rev: Yes History of Labs B+/- HIV - HbSAg - Hep C - rub I VDRL NR GBS + Other hypothyroidism Allergies and Home Medications Allergies Coded Allergies: No Known Drug Allergies (Unverified , 06/05/17) Home Medications Levothyroxine Sodium 50 Mcg Tablet, 50 MCG PO DAILY, (Reported) Patient Home Medication List Home Medication List Reviewed: Yes OB - History Hx of Present Care: Yes Ultrasounds: Normal mid trimester US Obstetrical Complications: None Medical Complications: None Information Induced Hypertension: No Hemorrhage: No Obstetrical History Hx : 2 Hx Para: 1 Hx # Term Pregnancies: 1 Hx # Pregnancies: 0 Number of Living Children: 1 Hx Termination: No Hx Multiple Gestation: No Hx Ectopic : No Hx Stillbirth: No Hx Complication: No Hx Induced Hypertens: No Hx Maternal Gestational Diabet: No Hx Hemorrhage: No Delivery History Hx Dystocia: No Hx Forceps Assisted Delivery: No Hx Vacuum Extraction Assisted: No Hx Placenta Abnormality: No Hx Distress: No Hx Large For Gestational Age I: Yes Hx Small for Gestational Age I: No Hx Section: No Hx Vaginal Delivery Post C-Sec: No Hx Blood Disorders: No Adverse Rxn to Tranfusion: No Patient Past Medical History hypothyroidism Social History/Family History Alcohol Use: Denies Use Recreational Drug Use: No Smoking Cessation: Never smoker 2nd Hand Smoke Exposure: No Immunizations Tetanus Booster (TDap): Less than 5yrs Date of Influenza Vaccine: Aug 09, 2020 Rubella: immune RPR/VDRL: Negative GBS Status: Positive HBsAG: Negative OB - Admission Exam Physical Exam Vitals: Vital Signs 11/18/20 11/18/20 14:00 16:30 Temp 35.9 Pulse 87 Resp 18 B/P (MAP) 116/70 (85) Pulse Ox 99 O2 Delivery Room Air Heart: Rhythm Normal Lungs: Clear Abdomen: Gravid Extremities: Edema (tr) Reflexes: Normal Cervical Dilatation: 2cm Effacement: 25% Station: -3 Membranes: Intact Amniotic Fluid: Thin Meconium (with AROM) Heart Rate: 140's Accelerations: Accelerations Present Decelerations: No Decelerations Short Term Variability: Present Detention Variability: Average (6-25) Contractions on Admission: 6-10 Minutes Apart Intensity: Mild Labs Laboratory Tests Test 11/18/20 06:51 Range/Units White Blood Count 9.3 4.3-11.0 10^3/uL Red Blood Count 3.43 L 3.80-5.11 10^6/uL Hemoglobin 9.0 L 11.5-16.0 g/dL Hematocrit 29 L 35-52 % Mean Corpuscular Volume 85 80-99 fL Mean Corpuscular Hemoglobin 26 25-34 pg Mean Corpuscular Hemoglobin Concent 31 L 32-36 g/dL Red Cell Distribution Width 14.6 H 10.0-14.5 % Platelet Count 171 130-400 10^3/uL Mean Platelet Volume 9.7 9.0-12.2 fL Immature Granulocyte % (Auto) 3 % Neutrophils (%) (Auto) 68 42-75 % Lymphocytes (%) (Auto) 19 12-44 % Monocytes (%) (Auto) 9 0-12 % Eosinophils (%) (Auto) 1 0-10 % Basophils (%) (Auto) 0 0-10 % Neutrophils # (Auto) 6.4 1.8-7.8 10^3/uL Lymphocytes # (Auto) 1.8 1.0-4.0 10^3/uL Monocytes # (Auto) 0.8 0.0-1.0 10^3/uL Eosinophils # (Auto) 0.1 0.0-0.3 10^3/uL Basophils # (Auto) 0.0 0.0-0.1 10^3/uL Immature Granulocyte # (Auto) 0.3 H 0.0-0.1 10^3/uL OB - Assessment/Plan/Diagnosis Assessment Assessment: group B positive strep, induction of labor Admission Dx Induction of labor 40 + weeks Post maturity GBS + Admission Status: Inpatient Order (span 2 midnights) Reason for Inpatient Admission: labor Plan Plan: Induction Induction Method: AROM Other Plan GBS prophylaxis with ampicillin. Pitocin/Arom Anticipate TRISTEN STRATTON DO Nov 18, 2020 17:14
[2020-11-18] MEDS ORDERED: LIDOCAINE/EPI 2% 1:200,00 (XYLOCAINE) 10 ML VIAL ONE (17:38)
[2020-11-18] MEDS ORDERED: BENZOCAINE/MENTHOL (DERMOPLAST) 56 ML CAN TP ONE (18:23)
--- NOTE | 2020-11-18 18:36 | OB Labor & Delivery Record ---
Vag Delivery Note Vag Delivery Note Date of Delivery: 11/18/20 Preoperative Diagnosis: Marci Saldana is a 35 /Para 2 / 1, Gestational Age 40 2/7 weeks. meconium Postoperative Diagnosis: Same Surgeon: TRISTEN DOMINGO Anesthesia: epidural Delivery Type: vaginal Findings: Viable male , apgars 8/9, weight 9#13 ounces Lacerations: 2nd degree Intact placenta with 3 vessel cord. No nuchal cord, body cord or shoulder dystocia Estimated Blood Loss: 200 ml Complications: None Condition: Stable Description of Procedure: The patient is a 35 year old female who presented at 40 + weeks for induction of labor. GBS +. She was admitted and informed consent was obtained. Her labor course was remarkable for ampicillin was given and pitocin started. then had AROM with light meconium noted. She progressed to complete dilatation and began to push. She was then set up for delivery. The infant's head was delivered atraumatically in the CHERYL position. The shoulders and remainder of the infant's body were then delivered without difficulty. Upon delivery, the head was held below the level of the perineum and the mouth and nares were delee and then bulb suctioned. The cord was doubly clamped and cut and the infant was handed off to the pediatric staff. An intact placenta with 3-vessel cord delivered via Matt and there was found to be minimal bleeding.~ Vigorous fundal massage was performed and the fundus was found to be firm. IV oxytocin was given. Examination of the vagina and perineum revealed a 2nd degree laceration repaired in the usual fashion with 3-0 vicryl suture. Following the repair, sponge, instrument and needle counts were correct. Mom and baby were both in stable condition in the labor suite. Vitals - Labs Vital Signs - I&O Vital Signs Date Time Temp Pulse Resp B/P (MAP) Pulse Ox O2 Delivery O2 Flow Rate FiO2 11/18/20 16:30 87 18 116/70 (85) 99 Room Air 11/18/20 16:15 80 18 122/68 (86) 100 Room Air 11/18/20 16:00 88 18 99/68 (78) 100 Room Air 11/18/20 15:45 87 18 99/68 (78) 97 Room Air 11/18/20 15:30 82 18 105/67 (80) 99 Room Air 4/1/21 15:15 80 18 106/64 (78) 98 Room Air 11/18/20 15:00 80 18 109/67 (81) 97 Room Air 11/18/20 14:45 80 18 107/65 (79) 100 Room Air 11/18/20 14:30 77 18 109/69 (82) 100 Room Air 11/18/20 14:15 77 18 107/68 (81) 99 Room Air 11/18/20 14:00 35.9 73 18 108/62 (77) 97 Room Air 11/18/20 13:45 75 18 107/69 (82) 99 Room Air 11/18/20 13:30 78 18 107/69 (82) 97 Room Air 11/18/20 13:15 73 18 108/62 (77) 98 Room Air 11/18/20 13:00 73 18 108/62 (77) 98 Room Air 11/18/20 12:45 77 18 108/62 (77) 98 Room Air 11/18/20 12:30 76 18 112/63 (79) 98 Room Air 11/18/20 12:15 78 18 114/63 (80) 96 Room Air 11/18/20 12:00 78 18 114/63 (80) 96 Room Air 11/18/20 11:45 135 18 109/60 (76) 99 Room Air 11/18/20 11:30 77 18 117/69 (85) 99 Room Air 11/18/20 11:15 81 18 116/68 (84) 98 Room Air 11/18/20 11:10 84 18 118/66 (83) 98 Room Air 11/18/20 11:05 91 18 118/65 (82) 98 Room Air 11/18/20 11:00 88 18 117/67 (84) 99 Room Air 11/18/20 10:55 86 18 113/61 (78) 99 Room Air 11/18/20 10:50 88 18 129/69 (89) 100 Room Air 11/18/20 10:45 90 18 131/69 (89) 100 Room Air 11/18/20 10:40 36.7 83 18 125/67 (86) 100 Room Air 11/18/20 10:30 85 18 137/74 (95) Room Air 11/18/20 10:15 81 18 133/75 (94) Room Air 11/18/20 10:00 81 18 131/76 (94) Room Air 11/18/20 09:45 79 18 110/67 (81) Room Air 11/18/20 09:30 79 18 110/67 (81) Room Air 11/18/20 09:15 85 18 115/73 (87) Room Air 11/18/20 09:00 85 18 111/67 (82) Room Air 11/18/20 08:45 86 18 108/66 (80) Room Air 11/18/20 08:30 86 18 108/66 (80) Room Air 11/18/20 08:15 88 18 113/73 (86) Room Air 11/18/20 07:50 86 18 121/73 (89) Room Air 11/18/20 07:10 35.7 94 18 99 Room Air 11/18/20 07:09 35.7 94 18 116/75 (89) 99 Room Air Labs Laboratory Tests 11/18/20 06:51: White Blood Count 9.3, Red Blood Count 3.43L, Hemoglobin 9.0L, Hematocrit 29L, Mean Corpuscular Volume 85, Mean Corpuscular Hemoglobin 26, Mean Corpuscular Hemoglobin Concent 31L, Red Cell Distribution Width 14.6H, Platelet Count 171, Mean Platelet Volume 9.7, Immature Granulocyte % (Auto) 3, Neutrophils (%) (Auto) 68, Lymphocytes (%) (Auto) 19, Monocytes (%) (Auto) 9, Eosinophils (%) (Auto) 1, Basophils (%) (Auto) 0, Neutrophils # (Auto) 6.4, Lymphocytes # (Auto) 1.8, Monocytes # (Auto) 0.8, Eosinophils # (Auto) 0.1, Basophils # (Auto) 0.0, Immature Granulocyte # (Auto) 0.3H TRISTEN DOMINGO DO Nov 18, 2020 18:36
[2020-11-18] MEDS ORDERED: ACET-93 PO (18:39)
[2020-11-18] MEDS ORDERED: IBUP-844 PO (18:39)
[2020-11-18] MEDS ORDERED: FERR325T18 PO (18:39)
[2020-11-18] MEDS ORDERED: DCS100C PO (18:39)
[2020-11-18] MEDS ORDERED: OXC5T PO (18:39)
--- NOTE | 2020-11-18 18:41 | Discharge Inst-Women's Service ---
Discharge Inst-Women's Serv Depart Medication/Instructions New, Converted or Re-Newed RX: Transmitted to Pharmacy Final Diagnosis post dates (40 + weeks) antepartum and acute blood loss anemia macrosomia (> 4000 grams) 2nd degree laceration hypothyroidism GBS + Problems Reviewed?: Yes Consults/Follow Up Additional Follow Up: Yes (4-6 week post exam) Activity Activity: Activity as Tolerated Driving Instructions: You May Drive NO SMOKING: NO SMOKING Nothing Inside Vagina: No Douching, No [place], No Tampons Diet Discharge Diet: No Restrictions Symptoms to Report to : Swelling Increased, Bleeding Excessive, Pain Increased, Fever Over 101 Degrees F, Vaginal Bleeding Increase, Cramps in Feet or Legs, Vaginal Discharge Foul For Any Problems or Questions: Contact Your Physician TRISTEN DOMINGO DO Nov 18, 2020 18:40
[2020-11-18] MEDS ORDERED: WITCH HAZEL(TUCKS) 40 EA JAR TOP PRN (18:45)
[2020-11-18] MEDS ORDERED: MEASLES,MUMPS,RUBELLA 1 EA INJ SQ ONE (18:45)
[2020-11-18] MEDS ORDERED: BENZOCAINE/MENTHOL (DERMOPLAST) 56 ML CAN TP PRN (18:45)
[2020-11-18] MEDS ORDERED: TETANUS,DIPTH,PERTUSS P/F (BOOSTRIX) 0.5 ML VIAL IM ONE (18:45)
[2020-11-18] MEDS: ACETAMINOPHEN 500 MG TAB (TYLENOL) PO SCH (20:00)
[2020-11-18] MEDS: IBUPROFEN 600 MG (MOTRIN) TAB PO SCH (20:00)
[2020-11-19] VITALS: BP 130/72
[2020-11-19] MEDS: IBUPROFEN 600 MG (MOTRIN) TAB PO SCH ×3 (01:57→16:27)
[2020-11-19] MEDS: DOCUSATE SODIUM 100 MG (COLACE) CAP PO SCH ×3 (01:57→20:03)
[2020-11-19 04:00] VITALS: BP 119/68
[2020-11-19] MEDS: ACETAMINOPHEN 500 MG TAB (TYLENOL) PO SCH ×3 (04:10→20:03)
[2020-11-19 05:44] LABS: BASOPHILS % (AUTO) 0 % (0-10); EOSINOPHILS # (AUTO) 0.1 10^3/uL (0.0-0.3); EOSINOPHILS % (AUTO) 1 % (0-10); HEMATOCRIT 30 % (35-52); HEMOGLOBIN 9.3 g/dL (11.5-16.0); LYMPHOCYTES # (AUTO) 1.7 10^3/uL (1.0-4.0); LYMPHOCYTES % (AUTO) 14 % (12-44); MEAN CORPUSCULAR HEMOGLOBIN 27 pg (25-34); MEAN CORPUSCULAR HGB CONC 31 g/dL (32-36); MEAN CORPUSCULAR VOLUME 86 fL (80-99); MEAN PLATELET VOLUME 10.4 fL (9.0-12.2); MONOCYTES # (AUTO) 0.9 10^3/uL (0.0-1.0); MONOCYTES % (AUTO) 7 % (0-12); NEUTROPHILS # (AUTO) 9.8 10^3/uL (1.8-7.8); NEUTROPHILS % (AUTO) 77 % (42-75); PLATELET COUNT 186 10^3/uL (130-400); WHITE BLOOD COUNT 12.7 10^3/uL (4.3-11.0)
[2020-11-19] MEDS ORDERED: PRENATAL VITAMIN 1 EA TAB PO SCH (07:00)
--- NOTE | 2020-11-19 07:14 | Postpartum Progress Note ---
Note Note Day # 1 Subjective: Patient is without complaints. Ambulating, voiding. Tolerating a regular diet without nausea or vomiting. Normal lochia. Pain is well controlled with oral pain medications. Objective: Physical Exam: General - Alert and oriented, no apparent distress Abdomen - Soft, appropriately tender to palpation, non-distended, fundus firm at umbilicus Extremities - no edema, negative Ritchie's bilaterally Assessment: PPD 1 NVD Chronic occurring anemia secondary to Plan: Routine care. Encourage breast feeding. Encourage ambulation. Ferrous sulfate supplementation. Plan for discharge today Vitals - Labs Vital Signs - I&O Vital Signs Date Time Temp Pulse Resp B/P (MAP) Pulse Ox O2 Delivery O2 Flow Rate FiO2 11/19/20 04:00 36.4 82 18 119/68 (85) 99 11/19/20 00:00 36.4 76 18 130/72 (91) 98 11/18/20 20:00 36.8 90 18 125/76 (92) 11/18/20 19:45 85 18 136/67 (90) Room Air 11/18/20 19:31 89 18 128/67 (87) Room Air 11/18/20 19:00 85 18 130/71 (90) Room Air 11/18/20 18:45 112 18 94/62 (73) Room Air 11/18/20 18:30 36.6 90 18 112/67 (82) Room Air 11/18/20 18:15 76 18 112/55 (74) Room Air 11/18/20 18:00 82 18 116/64 (81) Room Air 11/18/20 17:45 84 18 123/84 (97) Room Air 11/18/20 17:30 36.6 79 18 116/62 (80) Room Air 11/18/20 17:15 86 18 124/69 (87) 99 Room Air 11/18/20 17:00 80 18 117/70 (86) 99 Room Air 11/18/20 16:45 81 18 121/74 (90) 99 Room Air 11/18/20 16:30 87 18 116/70 (85) 99 Room Air 11/18/20 16:15 80 18 122/68 (86) 100 Room Air 11/18/20 16:00 88 18 99/68 (78) 100 Room Air 11/18/20 15:45 87 18 99/68 (78) 97 Room Air 11/18/20 15:30 82 18 105/67 (80) 99 Room Air 11/18/20 15:15 80 18 106/64 (78) 98 Room Air 11/18/20 15:00 80 18 109/67 (81) 97 Room Air 11/18/20 14:45 80 18 107/65 (79) 100 Room Air 11/18/20 14:30 77 18 109/69 (82) 100 Room Air 11/18/20 14:15 77 18 107/68 (81) 99 Room Air 11/18/20 14:00 35.9 73 18 108/62 (77) 97 Room Air 11/18/20 13:45 75 18 107/69 (82) 99 Room Air 11/18/20 13:30 78 18 107/69 (82) 97 Room Air 11/18/20 13:15 73 18 108/62 (77) 98 Room Air 11/18/20 13:00 73 18 108/62 (77) 98 Room Air 11/18/20 12:45 77 18 108/62 (77) 98 Room Air 11/18/20 12:30 76 18 112/63 (79) 98 Room Air 11/18/20 12:15 78 18 114/63 (80) 96 Room Air 11/18/20 12:00 78 18 114/63 (80) 96 Room Air 11/18/20 11:45 135 18 109/60 (76) 99 Room Air 11/18/20 11:30 77 18 117/69 (85) 99 Room Air 11/18/20 11:15 81 18 116/68 (84) 98 Room Air 11/18/20 11:10 84 18 118/66 (83) 98 Room Air 11/18/20 11:05 91 18 118/65 (82) 98 Room Air 11/18/20 11:00 88 18 117/67 (84) 99 Room Air 11/18/20 10:55 86 18 113/61 (78) 99 Room Air 11/18/20 10:50 88 18 129/69 (89) 100 Room Air 11/18/20 10:45 90 18 131/69 (89) 100 Room Air 11/18/20 10:40 36.7 83 18 125/67 (86) 100 Room Air 11/18/20 10:30 85 18 137/74 (95) Room Air 11/18/20 10:15 81 18 133/75 (94) Room Air 11/18/20 10:00 81 18 131/76 (94) Room Air 11/18/20 09:45 79 18 110/67 (81) Room Air 11/18/20 09:30 79 18 110/67 (81) Room Air 11/18/20 09:15 85 18 115/73 (87) Room Air 11/18/20 09:00 85 18 111/67 (82) Room Air 11/18/20 08:45 86 18 108/66 (80) Room Air 11/18/20 08:30 86 18 108/66 (80) Room Air 11/18/20 08:15 88 18 113/73 (86) Room Air 11/18/20 07:50 86 18 121/73 (89) Room Air I & O 11/19/20 06:59 Intake Total 3037.0 ml Balance 3037.0 ml Labs Laboratory Tests 11/19/20 05:10: White Blood Count 12.7H, Red Blood Count 3.49L, Hemoglobin 9.3L, Hematocrit 30L, Mean Corpuscular Volume 86, Mean Corpuscular Hemoglobin 27, Mean Corpuscular Hemoglobin Concent 31L, Red Cell Distribution Width 14.6H, Platelet Count 186, Mean Platelet Volume 10.4, Immature Granulocyte % (Auto) 1, Neutrophils (%) (Auto) 77H, Lymphocytes (%) (Auto) 14, Monocytes (%) (Auto) 7, Eosinophils (%) (Auto) 1, Basophils (%) (Auto) 0, Neutrophils # (Auto) 9.8H, Lymphocytes # (Auto) 1.7, Monocytes # (Auto) 0.9, Eosinophils # (Auto) 0.1, Basophils # (Auto) 0.0, Immature Granulocyte # (Auto) 0.1 RASHEED HAMMONDS DO Nov 19, 2020 07:14
--- NOTE | 2020-11-19 07:20 | Anesthesia-Regional Post-Op ---
Regional Patient Condition Mental Status: Alert, Oriented x3 Circulation: Same as Pre-Op Headache: Absent Sensation: Full Recovery Motor Block: Absent Post Op Complications Complications None Follow Up Care/Instructions Patient Instructions None needed. Anesthesia/Patient Condition Patient is doing well, no complaints, stable vital signs, no apparent adverse anesthesia problems. No complications reported per nursing. GIBRAN RG CRNA Nov 19, 2020 07:20
[2020-11-19] MEDS ORDERED: FERROUS SULF 325 MG (IRON) TAB PO SCH (08:00)
[2020-11-19 09:00] VITALS: BP 115/67
[2020-11-19] MEDS ORDERED: DIBUCAINE (NUPERCAINAL) 1% OINT 30 GM TOP PRN (10:15)
[2020-11-19] MEDS ORDERED: SIMETHICONE 80 MG (MYLICON) CHEW ONE (11:56)
[2020-11-19] MEDS ORDERED: SIMETHICONE 80 MG (MYLICON) CHEW PO PRN (12:00)
[2020-11-19 12:15] VITALS: BP 122/86
[2020-11-19 16:15] VITALS: BP 111/72
[2020-11-19 20:00] VITALS: BP 117/69
== END 2020-11-19 20:26 | disposition home or self-care (01) | DRG 807 ==
LOC: LDRP 06:03
PROVIDERS: ADMIT Obstetrics & Gynecology; ATTEND Obstetrics & Gynecology
PROC: 10E0XZZ Delivery of Products of Conception, External Approach (ICD-10-PCS; principal; 2020-11-18)
PROC: 0KQM0ZZ Repair Perineum Muscle, Open Approach (ICD-10-PCS; 2020-11-18)
PROC: 10907ZC Drainage of Amniotic Fluid, Therapeutic from Products of Conception, Via Natural or Artificial Opening (ICD-10-PCS; 2020-11-18)
DX: O48.0 Post-term pregnancy (principal); Z37.0 Single live birth; Z3A.40 40 weeks gestation of pregnancy; O99.824 Streptococcus B carrier state complicating childbirth; O70.1 Second degree perineal laceration during delivery; O99.02 Anemia complicating childbirth; D53.9 Nutritional anemia, unspecified
CPT/HCPCS: 36415; 85025; 86850; 86900; 86901

== ENCOUNTER 2021-04-21 05:35 | Outpatient (CLI) | payer OTHER ==
[~2021-04-21] VITALS: Ht 172.7 cm; Wt 75.5 kg
[~2021-04-21 05:35] MED LIST changes: +ACET-93 PO; +DCS100C PO; +FERR325T18 PO; +IBUP-844 PO; +OXC5T PO
== END 2021-04-21 14:05 ==
LOC: PREOP 05:35
PROVIDERS: ATTEND Surgery
DX: Z01.818 Encounter for other preprocedural examination (principal)

== ENCOUNTER 2021-04-29 09:43 | Day surgery (SDC) | payer OTHER ==
[~2021-04-29] VITALS: Ht 172.7 cm; Wt 75.5 kg
[2021-04-29] MEDS ORDERED: LACTATED RINGERS 1,000 ML IV STA (09:55)
[2021-04-29] MEDS ORDERED: LACTATED RINGERS 1,000 ML IV ONE (10:00)
[2021-04-29 10:10] VITALS: BP 115/72
--- NOTE | 2021-04-29 11:23 | Progress Note-Pre Operative ---
Pre-Operative Progress Note H&P Reviewed The H&P was reviewed, patient examined and no changes noted. Time Seen by Provider: 11:21 Date H&P Reviewed: Apr 29, 2021 Time H&P Reviewed: 11:21 Pre-Operative Diagnosis: Rectal bleed MARIANNE RAO DO Apr 29, 2021 11:23
[2021-04-29] MEDS ORDERED: PROPOFOL INJECTION 50 ML IV ONE (12:15)
[2021-04-29 12:45] VITALS: BP 108/64
--- NOTE | 2021-04-29 12:45 | Anesthesia-General Post-Op ---
MAC Patient Condition Mental Status/LOC: Same as Preop Cardiovascular: Satisfactory Nausea/Vomiting: Absent Respiratory: Satisfactory Pain: Controlled Complications: Absent Post Op Complications Complications None Follow Up Care/Instructions Patient Instructions None needed. Anesthesiology Discharge Order Discharge Order Patient is doing well, no complaints, stable vital signs, no apparent adverse anesthesia problems. No complications reported per nursing. JUANA PORTILLO CRNA Apr 29, 2021 12:45
--- NOTE | 2021-04-29 12:47 | Progress Note-Post Operative ---
Post-Operative Progess Note Surgeon (s)/Criminal Researcher (s) Surgeon MARIANNE RAO DO Criminal Researcher: NEO Lock Pre-Operative Diagnosis Rectal bleed Post-Operative Diagnosis Colon polyp int hemorrhoids Procedure & Operative Findings Date of Procedure 04/29/21 Procedure Performed/Findings Colon with snare Polypectomy PROCEDURE NOTE: After informed consent was obtained, the patient was brought to the endoscopy suite, placed in bed in left lateral decubitus position. She was administered IV sedation by the ICE [employer] VAN VENDOR who then monitored her vitals the entire time, heart rate, blood pressure and pulse ox and the scope was inserted, pushed all the way to about 120 cm and pushed into the cecum, took a picture of appendiceal orifice and then slowly withdrew the scope insufflating the circumferential velasco looking the cecum, up the ascending colon to the hepatic flexure, then down the transverse colon, splenic flexure, into the descending colon down into the sigmoid. On the way in had noted a large polyp; it was in the Sigmoid. Elected to do a snare polypectomy and able to get down on the stalk to the base on first time. Removed from mucosa and then suctioned up to scope and pulled scope completely out to remove polyp. Then placed scope back in and pulled into the rectal vault and retroflexed the scope. Took picture of the internal hemorrhoids. The patient tolerated the procedure. She was recovered in endoscopy suite. Anesthesia Type IV sedation by [employer] V[employer] VENDOR Estimated Blood Loss Estimated blood loss (mL): scant Specimens/Packing Specimens Removed sigmoid polyp MARIANNE RAO DO Apr 29, 2021 12:47
--- NOTE | 2021-04-29 12:48 | Endoscopy Discharge Instruct ---
Endo Procedure/Findings Findings 1.: Polyp 2.: Internal Hemorrhoids Discharge Instructions - Activity: You might feel a little sleepy until tomorrow. This is due to the medicine you received to relax you. Until tomorrow, you should: NOT drive a car, operate machinery or power tools. NOT drink any alcoholic beverages. NOT make any important decisions or sign importortant papers. Do not return to work until tomorrow, unless otherwise instructed. Resume previous activities tomorrow. Diet: Start by taking liquids. If you tolerate liquids, advance to solid food. 1.: Colonoscopy in 1 year Notify Physician - If you experience excessive bleeding, unusual abdominal pain, fever, or chest pain, contact your doctor immediately. MARIANNE RAO DO Apr 29, 2021 12:48
[2021-04-29 12:50] VITALS: BP 103/72
[2021-04-29 13:10] VITALS: BP 110/69
[2021-04-29 13:20] VITALS: BP 110/69
== END 2021-04-29 13:20 | disposition home or self-care (01) ==
LOC: ENDO 09:43
PROVIDERS: ATTEND Surgery
DX: D12.5 Benign neoplasm of sigmoid colon (principal); K64.8 Other hemorrhoids; Z87.891 Personal history of nicotine dependence
CPT/HCPCS: 84703